=== PATIENT | male | born 1955 | race Caucasian/White ===

== ENCOUNTER → 2022-05-04 | Outpatient (CLI) | payer OTHER ==
[~2022-05-04] MED LIST: HYDR-643; PANT40TA29; TAMS1CAP17; TRAM50TA2
== END ==
LOC: M LABSMTC 11:15
PROVIDERS: ATTEND Anesthesiology
DX: Z01.818 Encounter for other preprocedural examination (principal)

== ENCOUNTER → 2022-05-08 | Outpatient (CLI) | payer OTHER ==
[~2022-05-08] MED LIST changes: +LIDOCAINE 1% MDV 20ML VIAL As Ordered ONE; +MIDAZOLAM INJ 2MG/2ML VIAL As Ordered ONE; +NS 1,000 ML IV SCH; +ceFAZolin 2 GM/D5W 50 ML IV BAG As Ordered ONE; +ceFAZolin SOD 2 GM in IV 1 EA IV ONE; +diphenhydrAMINE 50MG/ML VIAL As Ordered ONE; +fentaNYL 100 MCG/2 ML INJECTION As Ordered ONE
[2022-05-08 11:14] VITALS: BP 111/63
== END ==
LOC: M IRPRO 06:58
PROVIDERS: ATTEND Specialist
DX: C45.7 Mesothelioma of other sites (principal)
CPT/HCPCS: 36561; 99152; 99153; C1769; C1788; C1894; J0690; J1200; J1642; J1644; J2250; J3010

== ENCOUNTER → 2022-05-30 | Outpatient (POV) | payer OTHER ==
[~2022-05-30] VITALS: Ht 180.3 cm; Wt 55.9 kg
[~2022-05-30] MED LIST changes: +FINA5TAB2 PO; +GABA-1171 PO; -HYDR-643; +HYDR-643 PO; -LIDOCAINE 1% MDV 20ML VIAL As Ordered ONE; -MIDAZOLAM INJ 2MG/2ML VIAL As Ordered ONE; -NS 1,000 ML IV SCH; +ONDA8TAB8 PO; +OXYC-517 PO; -PANT40TA29; +PANT40TA29 PO; -TAMS1CAP17; +TAMS1CAP17 PO; -TRAM50TA2; +TRAM50TA2 PO; -ceFAZolin 2 GM/D5W 50 ML IV BAG As Ordered ONE; -ceFAZolin SOD 2 GM in IV 1 EA IV ONE; -diphenhydrAMINE 50MG/ML VIAL As Ordered ONE; -fentaNYL 100 MCG/2 ML INJECTION As Ordered ONE
[2022-05-30 12:30] VITALS: BP 108/65
== END ==
LOC: M IRPOV 11:57
PROVIDERS: ATTEND Radiology Diagnostic Radiology
DX: Z45.2 Encounter for adjustment and management of vascular access device (principal)

== ENCOUNTER → 2022-05-30 | Outpatient (CLI) | payer OTHER ==
[~2022-05-30] VITALS: Ht 180.3 cm; Wt 56.9 kg
[2022-05-30 10:26] VITALS: BP 102/64
== END ==
LOC: M PAL 10:20
PROVIDERS: ATTEND Nurse Practitioner Adult Health
DX: C45.1 Mesothelioma of peritoneum (principal); Z51.5 Encounter for palliative care; N40.0 Benign prostatic hyperplasia without lower urinary tract symptoms; K21.9 Gastro-esophageal reflux disease without esophagitis; Z80.6 Family history of leukemia; G89.3 Neoplasm related pain (acute) (chronic); R61 Generalized hyperhidrosis; G47.00 Insomnia, unspecified; R64 Cachexia; R53.83 Other fatigue; F32.A Depression, unspecified; F41.9 Anxiety disorder, unspecified; Z79.891 Long term (current) use of opiate analgesic; Z79.899 Other long term (current) drug therapy

== ENCOUNTER → 2022-06-15 | Outpatient (CLI) | payer OTHER ==
[~2022-06-15] VITALS: Ht 180.3 cm; Wt 59.0 kg
[~2022-06-15] MED LIST changes: +FOLI1TAB11 PO; +NEUR300C PO
[2022-06-15 15:10] VITALS: BP 119/73
== END ==
LOC: M PAL 15:15
PROVIDERS: ATTEND Nurse Practitioner Adult Health
DX: C45.1 Mesothelioma of peritoneum (principal); Z51.5 Encounter for palliative care; N40.0 Benign prostatic hyperplasia without lower urinary tract symptoms; K21.9 Gastro-esophageal reflux disease without esophagitis; Z80.6 Family history of leukemia; G89.3 Neoplasm related pain (acute) (chronic); G47.00 Insomnia, unspecified; R14.0 Abdominal distension (gaseous); R53.83 Other fatigue; F32.A Depression, unspecified; F41.9 Anxiety disorder, unspecified; Z79.899 Other long term (current) drug therapy; Z79.891 Long term (current) use of opiate analgesic

== ENCOUNTER → 2022-06-21 | Outpatient (CLI) | payer OTHER ==
[~2022-06-21] MED LIST changes: -FOLI1TAB11 PO
== END ==
LOC: M IRPRO 10:58
PROVIDERS: ATTEND Nurse Practitioner Adult Health
DX: R10.9 Unspecified abdominal pain (principal)

== ENCOUNTER → 2022-07-18 | Outpatient (CLI) | payer OTHER ==
[~2022-07-18] VITALS: Ht 177.8 cm; Wt 59.7 kg
[~2022-07-18] MED LIST changes: +FOLI1TAB11 PO; +NEUR100C PO
[2022-07-18 14:25] VITALS: BP 105/70
== END ==
LOC: M PAL 14:26
PROVIDERS: ATTEND Nurse Practitioner Adult Health
DX: C45.1 Mesothelioma of peritoneum (principal); Z51.5 Encounter for palliative care; K21.9 Gastro-esophageal reflux disease without esophagitis; N40.0 Benign prostatic hyperplasia without lower urinary tract symptoms; G89.3 Neoplasm related pain (acute) (chronic); G47.00 Insomnia, unspecified; R14.0 Abdominal distension (gaseous); R64 Cachexia; R53.83 Other fatigue; F32.A Depression, unspecified; F41.9 Anxiety disorder, unspecified; Z80.6 Family history of leukemia; Z79.899 Other long term (current) drug therapy; Z79.891 Long term (current) use of opiate analgesic

== ENCOUNTER → 2022-08-15 | Outpatient (CLI) | payer MEDICARE, OTHER ==
[~2022-08-15] VITALS: Ht 180.3 cm; Wt 59.2 kg
[~2022-08-15] MED LIST changes: +ALBU8.5H; +DEXA4TA PO; +FURO20TA2 PO; +SPIR-10 PO
[2022-08-15 15:01] VITALS: BP 114/78; TEMP 98.5; O2SAT 95
== END ==
LOC: M PAL 14:47
PROVIDERS: ATTEND Nurse Practitioner Adult Health
DX: C45.1 Mesothelioma of peritoneum (principal); Z51.5 Encounter for palliative care; Z92.21 Personal history of antineoplastic chemotherapy; M25.50 Pain in unspecified joint; G89.3 Neoplasm related pain (acute) (chronic); G47.00 Insomnia, unspecified; R53.83 Other fatigue; Z87.891 Personal history of nicotine dependence; R14.0 Abdominal distension (gaseous); E46 Unspecified protein-calorie malnutrition; R64 Cachexia; Z79.899 Other long term (current) drug therapy; Z80.6 Family history of leukemia

== ENCOUNTER → 2022-09-19 | Outpatient (CLI) | payer MEDICARE, OTHER ==
[~2022-09-19] MED LIST changes: -ALBU8.5H; +ALBU8.5H INH; +GABA-282 PO
[2022-09-19 15:51] LABS: INR 1.01; PROTHROMBIN TIME 13.5 SECONDS (12.5-14.5)
[2022-09-19 15:52] LABS: PARTIAL THROMBOPLASTIN TIME 53.6 SECONDS (24.8-34.2)
== END ==
LOC: M PAL 13:43
PROVIDERS: ATTEND Nurse Practitioner Adult Health
DX: C45.1 Mesothelioma of peritoneum (principal); R53.83 Other fatigue; R10.31 Right lower quadrant pain; G89.3 Neoplasm related pain (acute) (chronic); M25.561 Pain in right knee; M25.562 Pain in left knee; R06.02 Shortness of breath; K21.9 Gastro-esophageal reflux disease without esophagitis; Z92.21 Personal history of antineoplastic chemotherapy; Z79.891 Long term (current) use of opiate analgesic; Z51.5 Encounter for palliative care; R60.9 Edema, unspecified; Z79.899 Other long term (current) drug therapy
CPT/HCPCS: 85610; 85730; G0463

== ENCOUNTER → 2022-09-22 | Outpatient (CLI) | payer MEDICARE, OTHER ==
[~2022-09-22] MED LIST changes: -ALBU8.5H INH; -DEXA4TA PO; -FURO20TA2 PO; -GABA-282 PO; -SPIR-10 PO
== END ==
LOC: M IRPRO 14:32
PROVIDERS: ATTEND Nurse Practitioner Adult Health
DX: R18.8 Other ascites (principal); R14.0 Abdominal distension (gaseous)

== ENCOUNTER → 2022-09-26 | Outpatient (CLI) | payer MEDICARE, OTHER ==
[~2022-09-26] MED LIST changes: +ALBU8.5H INH; +DEXA4TA PO; +FURO20TA2 PO; +GABA-282 PO; +SPIR-10 PO
== END ==
LOC: M PAL 16:31
PROVIDERS: ATTEND Nurse Practitioner Adult Health
DX: C45.1 Mesothelioma of peritoneum (principal); Z51.5 Encounter for palliative care; R53.83 Other fatigue; R10.31 Right lower quadrant pain; G89.3 Neoplasm related pain (acute) (chronic); M25.561 Pain in right knee; M25.562 Pain in left knee; R06.02 Shortness of breath; K21.9 Gastro-esophageal reflux disease without esophagitis; Z92.21 Personal history of antineoplastic chemotherapy; Z79.891 Long term (current) use of opiate analgesic; R60.9 Edema, unspecified; Z79.899 Other long term (current) drug therapy

== ENCOUNTER → 2022-10-10 | Outpatient (CLI) | payer MEDICARE, OTHER ==
[~2022-10-10] MED LIST changes: +ALBU8.5H; -ALBU8.5H INH; -GABA-282 PO; -SPIR-10 PO
== END ==
LOC: M PAL 15:06
PROVIDERS: ATTEND Nurse Practitioner Adult Health
DX: C45.1 Mesothelioma of peritoneum (principal); R53.83 Other fatigue; R10.31 Right lower quadrant pain; G89.3 Neoplasm related pain (acute) (chronic); M25.561 Pain in right knee; M25.562 Pain in left knee; R64 Cachexia; E46 Unspecified protein-calorie malnutrition; R06.02 Shortness of breath; R60.9 Edema, unspecified; K21.9 Gastro-esophageal reflux disease without esophagitis; Z92.21 Personal history of antineoplastic chemotherapy; Z51.5 Encounter for palliative care; Z79.891 Long term (current) use of opiate analgesic; Z79.899 Other long term (current) drug therapy; Z66 Do not resuscitate

== ENCOUNTER → 2022-10-26 | Outpatient (CLI) | payer OTHER, MEDICARE ==
[~2022-10-26] MED LIST changes: +SPIR-10 PO
== END ==
LOC: M PAL 08:08
PROVIDERS: ATTEND Nurse Practitioner Family
DX: R60.0 Localized edema (principal); C45.7 Mesothelioma of other sites; Z80.6 Family history of leukemia; Z79.899 Other long term (current) drug therapy; Z79.52 Long term (current) use of systemic steroids; Z51.5 Encounter for palliative care

== ENCOUNTER 2022-11-03 19:37 | Inpatient (IN) | payer MEDICAID, MEDICARE, OTHER ==
[~2022-11-03] VITALS: Ht 180.3 cm; Wt 54.2 kg
[2022-11-03 19:37] VITALS: TEMP 97.6
[~2022-11-03 19:37] MED LIST changes: -ALBU8.5H; +ALBU8.5H INH; +SODIUM CHLORIDE 0.9% INJ 10 ML SYR IV SCH
[2022-11-03] MEDS ORDERED: ONDANSETRON 4MG 2ML VIAL IV ONE (20:35)
[2022-11-03] MEDS: MORPHINE 4 MG/ML 1ML VIAL IV PRN ×2 (21:04→21:47)
[2022-11-03 21:55] LABS: RSV AMPLIFICATION NEGATIVE (NEGATIVE)
[2022-11-03] MEDS ORDERED: OXYC-517 PO (22:32)
[2022-11-03] MEDS ORDERED: PANT40TA29 PO (22:32)
[2022-11-03] MEDS ORDERED: GABA-282 PO (22:32)
[2022-11-03] MEDS ORDERED: GABA-1171 PO (22:32)
[2022-11-03] MEDS ORDERED: HOME MED LIST COMPLETE! XX SCH (22:35)
[2022-11-03 22:52] VITALS: O2SAT 94
[2022-11-03 23:00] VITALS: BP 107/63
[2022-11-03] MEDS ORDERED: MORPHINE 10MG/0.5ML ORAL CONCENTRATE SOLUTION U/D SL PRN (23:30)
[2022-11-03] MEDS ORDERED: LORazepam 2 MG/ML 1ML VIAL IV PRN (23:30)
[2022-11-03] MEDS ORDERED: SCOPOLAMINE 1MG TRANSDERMAL PATCH TOP PRN (23:30)
[2022-11-03] MEDS ORDERED: ONDANSETRON 4MG 2ML VIAL IV PRN (23:30)
[2022-11-03] MEDS ORDERED: ACETAMINOPHEN TAB 650MG DOSE (2X325MG) PO PRN (23:30)
[2022-11-03] MEDS ORDERED: ONDANSETRON 4MG ORAL DISINTEGRATING TAB PO PRN (23:30)
[2022-11-04] MEDS: MORPHINE 4 MG/ML 1ML VIAL IV PRN ×3 (00:01→04:35)
[2022-11-04] MEDS ORDERED: TAMSULOSIN 0.4 MG CAP PO ONE (00:50)
[2022-11-04] MEDS: SODIUM CHLORIDE 0.9% INJ 10 ML SYR IV PRN ×2 (00:59→04:35)
[2022-11-04] MEDS: LORazepam 1 MG TAB PO PRN ×3 (05:01→13:01)
[2022-11-04] MEDS: CALCIUM CARBONATE 500 MG CHEW U/D PO PRN ×2 (05:01→10:05)
[2022-11-04] MEDS ORDERED: SENOKOT S TAB PO PRN (08:25)
[2022-11-04] MEDS ORDERED: FLEET ENEMA PR PRN (08:25)
[2022-11-04] MEDS ORDERED: MORPHINE 15 MG SA TAB PO SCH (09:00)
[2022-11-04] MEDS ORDERED: NICOTINE 14 MG/24 HR TRANSDERMAL TD SCH (09:00)
[2022-11-04] MEDS ORDERED: TAMSULOSIN 0.4 MG CAP PO SCH (09:00)
[2022-11-04] MEDS ORDERED: SODIUM CHLORIDE 0.9% INJ 10 ML SYR IV SCH (09:00)
[2022-11-04] MEDS ORDERED: PANTOPRAZOLE 40MG TAB (PROTONIX) PO SCH (09:00)
[2022-11-04] MEDS: MORPHINE 10MG/0.5ML ORAL CONCENTRATE SOLUTION U/D SL PRN ×2 (09:57→13:01)
== END 2022-11-04 15:25 | disposition expired | DRG 947 ==
LOC: M ED 19:37 → M ED INP 23:27 → M MS5PR 11-04 00:30
PROVIDERS: ADMIT Internal Medicine; ATTEND Internal Medicine Nephrology
DX: G89.3 Neoplasm related pain (acute) (chronic) (principal); E43 Unspecified severe protein-calorie malnutrition; Z68.1 Body mass index [BMI] 19.9 or less, adult; C45.1 Mesothelioma of peritoneum; R18.0 Malignant ascites; K21.9 Gastro-esophageal reflux disease without esophagitis; F41.9 Anxiety disorder, unspecified; R11.0 Nausea; F17.200 Nicotine dependence, unspecified, uncomplicated; Z51.5 Encounter for palliative care; L89.152 Pressure ulcer of sacral region, stage 2; N40.0 Benign prostatic hyperplasia without lower urinary tract symptoms; Z79.899 Other long term (current) drug therapy